=== PATIENT | female | born 1975 | race Two or more races ===

== ENCOUNTER → 2020-09-18 | Outpatient (CLI) | payer OTHER ==
--- NOTE | 2020-09-18 16:00 | RAD ---
EXAM: Bilateral screening mammogram. HISTORY: 44-year-old female presents for screening mammography. TECHNIQUE: Full-field digital craniocaudal and mediolateral oblique views of both breasts are obtaine d for evaluation. Computer aided detection was applied. COMPARISON: None. This is a baseline mammogram. BREAST PARENCHYMAL DENSITY: Level B - Scattered fibroglandular densities. FINDINGS: There is asymmetry within the lateral aspect of the left breast at mid to posterior depth i n the craniocaudal projection. The absence of a correlate in the mediolateral oblique projection favo rs summation artifact. There are benign calcifications within both breasts. There is no architectural distortion. IMPRESSION: BI-RADS Category 0: Incomplete. Additional imaging needed. RECOMMENDATION: Further evaluation with a spot compression craniocaudal view and full field true late ral view of the left breast to assess asymmetry described above is recommended. Sonographic imaging c an be performed if deemed indicated based on additional mammographic findings. If your mammogram demonstrates that you have dense breast tissue, which could hide abnormalities, and if you have other risk factors for breast cancer that have been identified, you might benefit from s upplemental screening tests that may be suggested by your ordering physician. Dense breast tissue, i n and of itself, is a relatively common condition. This information is not provided to cause undue c oncern, but rather to raise your awareness and to promote discussion with your physician regarding th e presence of other risk factors, in addition to dense breast tissue. A report of your mammography re sults will be sent to you and your physician. You should contact your physician if you have any ques tions or concerns regarding this report. Mammography is a sensitive method for finding small breast cancers, but it does not detect them all a nd is not a substitute for careful clinical examination. A negative mammogram does not negate a clin ically suspicious finding and should not result in delay in biopsying a clinically suspicious abnorma lity. PQRS compliance statement - Patient information was entered into a reminder system with a target due date for the next mammogram. "Our facility is accredited by the [employer] Mammography [employer]." Electronically signed by: Veronica Cool MD (09/18/2020 3:57 PM) [id number]
== END ==
LOC: MAMMO 15:20
PROVIDERS: ATTEND Family Medicine
DX: Z12.31 Encounter for screening mammogram for malignant neoplasm of breast (principal)
CPT/HCPCS: 77067

== ENCOUNTER → 2020-10-03 | Outpatient (CLI) | payer OTHER ==
--- NOTE | 2020-10-04 08:12 | RAD ---
CLINICAL INDICATION: ABEL HERNANDEZ, who is 45 years of age, presents for further evaluation of an asymmetry within the left breast seen on prior mammogram COMPARISON: Prior mammographic imaging 09/18/2020 TECHNIQUE: Diagnostic views of the left breast were obtained, utilizing digital technique. BREAST COMPOSITION: There are scattered fibroglandular densities. MAMMOGRAM FINDINGS: On these compression view there is partial effacement of the left breast asymmetry. Therefore ultraso und was performed. ULTRASOUND FINDINGS: Targeted ultrasound of the mammographic area of concern was performed. 3:00 position, 5 cm from the nipple: A 0.6 x 0.6 x 0.4 cm hypoechoic mass and a parallel orientation with mild enhanced through transmission is seen. IMPRESSION: 1. Left breast probably benign mass for which follow up is recommended. RECOMMENDATION: In the absence of new clinical symptoms or change in physical exam, short term follow up diagnostic e xamination is recommended in 6 months to assess for interval stability. At that time diagnostic mammo graphy and ultrasound can be performed. BIRADS 3: PROBABLY BENIGN Electronically signed by: Edison Perla MD (10/04/2020 8:09 AM) [id number]
== END ==
LOC: MAMMO 13:56
PROVIDERS: ATTEND Family Medicine
DX: N63.23 Unspecified lump in the left breast, lower outer quadrant (principal)
CPT/HCPCS: 76642; 77065; G0279; 77061